=== PATIENT | female | born 1955 | race Hispanic/Latino ===

== ENCOUNTER 2018-06-28 16:08 | Observation (INO) | payer BC, MEDICARE ==
[2018-06-28 16:08] VITALS: BMI 26.3
--- NOTE | 2018-06-28 17:20 | ED PDOC ---
HPI: Hypertension/Hypotension Time Seen by Provider: 06/28/18 17:03 Chief Complaint (Nursing): High Blood Pressure Chief Complaint (Provider): Palpitations History Per: Patient History/Exam Limitations: no limitations Additional Complaint(s): Pt reports palpitations that lasted for hours last night, associated with chest pressure. Was evaluated by Dr. Loo in office today where BP 160/100, told to come to ED for evaluation. Pt denies CP, SOB, recent travel, leg swelling, calf pain. Past Medical History Reviewed: Nursing Documentation, Vital Signs Vital Signs: Last Vital Signs Temp 98.3 F 06/28/18 16:49 Pulse 100 H 06/28/18 16:49 Resp 18 06/28/18 16:49 BP 168/96 H 06/28/18 16:49 Pulse Ox 99 06/28/18 16:49 - Medical History PMH: Anxiety, Depression - Family History Family History: States: Unknown Family Hx - Social History Current smoker - smoking cessation education provided: No Alcohol: None - Home Medications Home Medications: Ambulatory Orders Medication Instructions Recorded Cyclobenzaprine HCl [Flexeril] 10 mg PO TID PRN #15 tab 12/11/14 Venlafaxine Hydrochloride [Effexor] 50 mg PO DAILY 12/11/14 Diclofenac Sodium [Voltaren] 50 mg PO Q8H PRN #60 ect 07/17/15 traMADol [Ultram] 50 mg PO TID PRN #16 tab 07/17/15 traMADol [Ultram] 50 mg PO TID PRN #30 tab 07/17/15 Cyclobenzaprine [Cyclobenzaprine 10 mg PO Q8H PRN #12 tab 04/29/16 HCl] - Allergies Allergies/Adverse Reactions: Allergies Allergy/AdvReac Type Severity Reaction Status Date / Time Penicillins Allergy URTICARIA Verified 04/29/16 04:25 Review of Systems Constitutional: Negative for: Fever, Chills Cardiovascular: Positive for: Palpitations. Negative for: Chest Pain, Orthopnea Respiratory: Negative for: Cough, Shortness of Breath Gastrointestinal: Negative for: Abdominal Pain Skin: Negative for: Rash Neurological: Negative for: Headache, Dizziness Psych: Positive for: Anxiety Physical Exam - Reviewed Nursing Documentation Reviewed: Yes - Physical Exam Appears: Positive for: Well, No Acute Distress Skin: Positive for: Normal Color, Warm, Dry Eye Exam: Positive for: Normal appearance, EOMI, PERRL Cardiovascular/Chest: Positive for: Regular Rate, Rhythm Respiratory: Positive for: Normal Breath Sounds Gastrointestinal/Abdominal: Positive for: Normal Exam Back: Positive for: Normal Inspection Extremity: Positive for: Normal ROM. Negative for: Calf Tenderness, Swelling Neurologic/Psych: Positive for: Alert, conveyor feeder II-XII, Oriented - Laboratory Results Result Diagrams: 06/28/18 17:30 06/28/18 17:30 - ECG Interpretation Of ECG: NSR @ 95, no ST-T changes. O2 Sat by Pulse Oximetry: 99 Pulse Ox Interpretation: Normal Medical Decision Making Medical Decision Makin yo female with palpitations and elevated BP. - labs - EKG - CXR Accession No. : [id number] Patient Name / ID : HUNTER Argueta / [id number] Exam Date : 06/28/2018 17:45:39 ( Approved ) Study Comment : Sex / Age : F / 63Y Creator : Madhu Lujan MD Dictator : Madhu Lujan MD Rapid Transit Operator : Welding Foreman : Madhu Lujan MD Approver2 : Report Date : 06/28/2018 18:04:05 My Comment : Date of service: 06/28/2018 HISTORY: Palpitations COMPARISON: No prior. TECHNIQUE: Chest PA and lateral FINDINGS: LUNGS: Hyperinflation, manifestations of COPD. No active pulmonary disease. PLEURA: No significant pleural effusion identified. No pneumothorax apparent. CARDIOVASCULAR: No radiographic findings to suggest acute or significant cardiovascular disease. Atherosclerotic calcifications identified primarily aortic arch. No pulmonary vascular congestion. OSSEOUS STRUCTURES: No significant abnormalities. VISUALIZED UPPER ABDOMEN: Normal. OTHER FINDINGS: None. IMPRESSION: No active disease. 18:[address] Loo, states HR in office was in 120s, recommends C oreg 3.125 mg and Xanax 0.25 mg PO. ] 21:00 Repeat BP 144/87, Coreg held. Disposition - Clinical Impression Clinical Impression: Chest pain, Palpitations - Patient ED Disposition Is Patient to be Admitted: Yes - Disposition Disposition Time: 21:05 Condition: STABLE Forms: [facility] (Greek) - Pt Status Changed To: Hospital Disposition Of: Observation - POA Present On Arrival: None
[2018-06-28 17:42] LABS: BASO # 0.1 K/uL (0.0-0.2); BASO % 1.2 % (0.0-2.0); EOS % 0.7 % (0.0-4.0); LYMPH # 1.4 K/uL (1.0-4.3); LYMPH % 26.6 % (20.0-40.0); MEAN CELL VOLUME 90.6 fl (81.0-99.0); MEAN CORPUSCULAR HEMOGLOBIN 30.1 pg (27.0-31.0); MEAN CORPUSCULAR HGB CONC 33.2 g/dL (33.0-37.0); MEAN PLATELET VOLUME 8.7 fl (7.2-11.7); MONO # 0.5 K/uL (0.0-0.8); MONO % 9.8 % (0.0-10.0); NEUT # 3.2 K/uL (1.8-7.0); NEUT % 61.7 % (50.0-75.0); RBC 4.32 Mil/uL (3.80-5.20); RED CELL DISTRIBUTION WIDTH 13.1 % (11.5-14.5); WHITE BLOOD COUNT 5.1 K/uL (4.8-10.8)
[2018-06-28 17:55] LABS: ALB/GLOB RATIO 1.3 (1.0-2.1); ALBUMIN 4.4 g/dL (3.5-5.0); ALT/SGPT 25 U/L (9-52); AST/SGOT 25 U/L (14-36); BLOOD UREA NITROGEN 20 mg/dl (7-17); CALCIUM 9.6 mg/dL (8.4-10.2); GFR NON-AFRICAN AMERICAN > 60
[2018-06-28 18:05] LABS: INR 0.9; PROTHROMBIN TIME 10.6 Seconds (9.8-13.1)
--- NOTE | 2018-06-28 18:07 | RAD ---
Date of service: 06/28/2018 HISTORY: Palpitations COMPARISON: No prior. TECHNIQUE: Chest PA and lateral FINDINGS: LUNGS: Hyperinflation, manifestations of COPD. No active pulmonary disease. PLEURA: No significant pleural effusion identified. No pneumothorax apparent. CARDIOVASCULAR: No radiographic findings to suggest acute or significant cardiovascular disease. Atherosclerotic calcifications identified primarily aortic arch. No pulmonary vascular congestion. OSSEOUS STRUCTURES: No significant abnormalities. VISUALIZED UPPER ABDOMEN: Normal. OTHER FINDINGS: None. IMPRESSION: No active disease.
[2018-06-28 18:08] LABS: PARTIAL THROMBOPLASTIN TIME 30.1 Seconds (25.6-37.1)
[2018-06-28] MEDS ORDERED: Iodixanol 320 MG/ML 100 ML BOTTLE IV ONE (19:27)
[2018-06-28] MEDS ORDERED: Sodium Chloride 0.9% 50 ML IV ONE (19:27)
[2018-06-29] MEDS ORDERED: Enoxaparin 40 mg Syringe SC SCH (09:00)
--- NOTE | 2018-06-29 12:37 | CT ---
Date of service: 06/28/2018 PROCEDURE: CT Chest with contrast (Pulmonary Angiogram) HISTORY: Palpitations COMPARISON: Chest radiographs 06/28/2018 as well. TECHNIQUE: Axial computed tomography images were obtained of the chest in the pulmonary arterial phase of enhancement. Coronal and sagittal reformatted images were created and reviewed. Intravenous contrast dose: Visipaque 320, 80 cc Radiation dose: Total exam DLP = 609.96 mGy-cm. This CT exam was performed using one or more of the following dose reduction techniques: Automated exposure control, adjustment of the mA and/or kV according to patient size, and/or use of iterative reconstruction technique. FINDINGS: PULMONARY ARTERIES: Unremarkable. No pulmonary embolism. AORTA: No acute findings. No thoracic aortic aneurysm. Calcific atherosclerotic changes are seen related to the thoracic aorta. LUNGS: Unremarkable. No nodule, mass or pulmonary consolidation. PLEURAL SPACES: Unremarkable. No effusion or pneumothorax. HEART: Unremarkable. No cardiomegaly. Normal right:left ventricle volume ratio. No significant pericardial effusion. LYMPH NODES: No lymphadenopathy. BONES, CHEST WALL: Mildly kyphotic thoracic spinal deformity likely on the basis of multiple midthoracic insufficiency fractures of limited severity but indeterminate age. OTHER FINDINGS: Unremarkable. IMPRESSION: Unremarkable CT pulmonary angiogram. No pulmonary embolus. No infiltrate, pleural or pericardial effusion appreciable. Kyphotic thoracic spinal deformity likely on an insufficiency fracture basis at the mid thoracic spine, potentially chronic but ultimately of indeterminate age. Concordant preliminary report from [facility], 06/28/2018 8:36 p.m..
--- NOTE | 2018-06-29 13:18 | CP.PCM.HP ---
History of Present Illness - History of Present Illness History of Present Illness: Pt 63 y/o lady c/o palpitations for hours the day of admission, associated with chest pressure. Was evaluated in office today where BP 160/100 and the HR was 120. She was very anxious and in mild distress, told to come to ED for eval uation. Present on Admission - Present on Admission Any Indicators Present on Admission: No Review of Systems - Constitutional Constitutional: As Per HPI - EENT Eyes: As Per HPI - Cardiovascular Cardiovascular: As Per HPI - Respiratory Respiratory: As Per HPI - Gastrointestinal Gastrointestinal: As Per HPI - Musculoskeletal Musculoskeletal: As Per HPI - Integumentary Integumentary: As Per HPI - Neurological Neurological: As Per HPI - Psychiatric Psychiatric: As Per HPI Past Patient History - Infectious Disease Hx of Infectious Diseases: None - Past Social History Smoking Status: Never Smoked - CARDIAC Hx Hypertension: Yes - PULMONARY Hx Respiratory Disorders: No - NEUROLOGICAL Hx Neurological Disorder: No - HEENT Hx HEENT Problems: No - RENAL Hx Chronic Kidney Disease: No - ENDOCRINE/METABOLIC Hx Endocrine Disorders: No - HEMATOLOGICAL/ONCOLOGICAL Hx Blood Disorders: No Hx Human Immunodeficiency Virus (HIV): No - INTEGUMENTARY Hx Dermatological Problems: No - MUSCULOSKELETAL/RHEUMATOLOGICAL Hx Musculoskeletal Disorders: No Hx Falls: No - GASTROINTESTINAL Hx Gastrointestinal Disorders: No - GENITOURINARY/GYNECOLOGICAL Hx Genitourinary Disorders: No - PSYCHIATRIC Hx Psychophysiologic Disorder: Yes Hx Anxiety: Yes Hx Depression: Yes Hx Substance Use: No - SURGICAL HISTORY Hx Surgeries: Yes (oral surgery) - ANESTHESIA Hx Anesthesia: Yes Hx Anesthesia Reactions: No Hx Malignant Hyperthermia: No Has any member of the family had a problem w/ anesthesia?: No Meds Allergies/Adverse Reactions: Allergies Allergy/AdvReac Type Severity Reaction Status Date / Time Penicillins Allergy URTICARIA Verified 04/29/16 04:25 Physical Exam - Constitutional Additional comments: anxious - Head Exam Head Exam: ATRAUMATIC, NORMAL INSPECTION, NORMOCEPHALIC - Eye Exam Eye Exam: Normal appearance - ENT Exam ENT Exam: Mucous Membranes Moist - Neck Exam Neck exam: Positive for: Full Rom, Normal Inspection - Respiratory Exam Respiratory Exam: Clear to Auscultation Bilateral - Cardiovascular Exam Cardiovascular Exam: Tachycardia, REGULAR RHYTHM, +S1, +S2 - GI/Abdominal Exam GI & Abdominal Exam: Normal Bowel Sounds - Back Exam Back exam: NORMAL INSPECTION - Neurological Exam Neurological exam: Alert, CN II-XII Intact, Normal Gait, Oriented x3, Reflexes Normal - Psychiatric Exam Psychiatric exam: Anxious - Skin Skin Exam: Normal Color Results - Vital Signs Recent Vital Signs: Last Vital Signs Temp 98.4 F 06/29/18 12:00 Pulse 102 H 06/29/18 12:00 Resp 18 06/29/18 12:00 BP 145/87 06/29/18 12:00 Pulse Ox 97 06/29/18 12:00 - Labs Result Diagrams: 06/28/18 17:30 06/28/18 17:30 Labs: Laboratory Results - last 24 hr 06/28/18 06/28/18 06/28/18 17:30 17:30 17:30 WBC 5.1 RBC 4.32 Hgb 13.0 Hct 39.1 MCV 90.6 MCH 30.1 MCHC 33.2 RDW 13.1 Plt Count 252 MPV 8.7 Neut % (Auto) 61.7 Lymph % (Auto) 26.6 [place] % (Auto) 9.8 Eos % (Auto) 0.7 Baso % (Auto) 1.2 Neut # (Auto) 3.2 Lymph # (Auto) 1.4 [place] # (Auto) 0.5 Eos # (Auto) 0.0 Baso # (Auto) 0.1 PT 10.6 INR 0.9 APTT 30.1 D-Dimer, Quantitative 293 H Sodium 134 Potassium 4.1 Chloride 101 Carbon Dioxide 26 Anion Gap 11 BUN 20 H Creatinine 0.7 Est GFR ( Amer) > 60 Est GFR (Non-Af Amer) > 60 Random Glucose 100 Calcium 9.6 Total Bilirubin 0.5 AST 25 ALT 25 Alkaline Phosphatase 68 Troponin I < 0.0120 Total Protein 7.7 Albumin 4.4 Globulin 3.3 Albumin/Globulin Ratio 1.3 TSH 3rd Generation 5.42 H 06/29/18 06/29/18 01:30 12:30 WBC RBC Hgb Hct MCV MCH MCHC RDW Plt Count MPV Neut % (Auto) Lymph % (Auto) [place] % (Auto) Eos % (Auto) Baso % (Auto) Neut # (Auto) Lymph # (Auto) [place] # (Auto) Eos # (Auto) Baso # (Auto) PT INR APTT D-Dimer, Quantitative Sodium Potassium Chloride Carbon Dioxide Anion Gap BUN Creatinine Est GFR ( Amer) Est GFR (Non-Af Amer) Random Glucose Calcium Total Bilirubin AST ALT Alkaline Phosphatase Troponin I < 0.0120 < 0.0120 Total Protein Albumin Globulin Albumin/Globulin Ratio TSH 3rd Generation Assessment & Plan (1) Depression Status: Chronic (2) Chest pain Status: Acute (3) Palpitations Status: Acute (4) Anxiety Status: Acute (5) Hypertensive cardiovascular disease Status: Acute - Assessment and Plan (Free Text) Plan: As per orders
--- NOTE | 2018-06-29 16:45 | CP.PCM.CON ---
History of Present Illness - History of Present Illness History of Present Illness: 63-year-old female patient of Dr. Loo who was having symptoms of palpitations and chest discomfort day prior to presentation she was seen by Dr. Reese in the office at which time she was noted to be to be tachycardic with heart rate of 120s and her blood pressure was 6100 she was somewhat in distress and therefore was sent to the emergency room for further evaluation and treatment according to the patient she is relatively active recently started feeling some palpitations day prior to presentation had some chest discomfort. EKG done showed normal sinus rhythm with nonspecific ST changes. Echocardiogram was ordered and an earlier in the day. Review of Systems - Review of Systems Systems not reviewed;Unavailable: Acuity of Condition - Constitutional Constitutional: As Per HPI - EENT Eyes: As Per HPI Ears: As Per HPI Nose/Mouth/Throat: As Per HPI - Breasts Breasts: As Per HPI - Cardiovascular Cardiovascular: As Per HPI - Respiratory Respiratory: As Per HPI - Gastrointestinal Gastrointestinal: As Per HPI - Genitourinary Genitourinary: As Per HPI - Reproductive: Female Reproductive:Female: As Per HPI - Menstruation Menstruation: As Per HPI - Musculoskeletal Musculoskeletal: As Per HPI - Integumentary Integumentary: As Per HPI - Neurological Neurological: As Per HPI - Psychiatric Psychiatric: As Per HPI - Endocrine Endocrine: As Per HPI - Hematologic/Lymphatic Hematologic: As Per HPI Past Patient History - Infectious Disease Hx of Infectious Diseases: None - Past Social History Smoking Status: Never Smoked - CARDIAC Hx Hypertension: Yes - PULMONARY Hx Respiratory Disorders: No - NEUROLOGICAL Hx Neurological Disorder: No - HEENT Hx HEENT Problems: No - RENAL Hx Chronic Kidney Disease: No - ENDOCRINE/METABOLIC Hx Endocrine Disorders: No - HEMATOLOGICAL/ONCOLOGICAL Hx Blood Disorders: No Hx Human Immunodeficiency Virus (HIV): No - INTEGUMENTARY Hx Dermatological Problems: No - MUSCULOSKELETAL/RHEUMATOLOGICAL Hx Musculoskeletal Disorders: No Hx Falls: No - GASTROINTESTINAL Hx Gastrointestinal Disorders: No - GENITOURINARY/GYNECOLOGICAL Hx Genitourinary Disorders: No - PSYCHIATRIC Hx Psychophysiologic Disorder: Yes Hx Anxiety: Yes Hx Depression: Yes Hx Substance Use: No - SURGICAL HISTORY Hx Surgeries: Yes (oral surgery) - ANESTHESIA Hx Anesthesia: Yes Hx Anesthesia Reactions: No Hx Malignant Hyperthermia: No Has any member of the family had a problem w/ anesthesia?: No Meds Allergies/Adverse Reactions: Allergies Allergy/AdvReac Type Severity Reaction Status Date / Time Penicillins Allergy URTICARIA Verified 04/29/16 04:25 - Medications Medications: Current Medications Carvedilol (Coreg) 3.125 mg PO Q12 COUNT INCLUDES THE [facility] Last Admin: 06/29/18 08:59 Dose: 3.125 mg Clonazepam (Klonopin) 0.5 mg PO BID COUNT INCLUDES THE [facility] Last Admin: 06/29/18 16:17 Dose: 0.5 mg Enoxaparin Sodium (Lovenox) 40 mg SC DAILY COUNT INCLUDES THE [facility]; Protocol Last Admin: 06/29/18 08:59 Dose: 40 mg Venlafaxine HCl (Effexor) 75 mg PO DAILY COUNT INCLUDES THE [facility] Last Admin: 06/29/18 08:59 Dose: 75 mg Physical Exam - Constitutional Appears: Well - Head Exam Head Exam: ATRAUMATIC, NORMAL INSPECTION, NORMOCEPHALIC - Eye Exam Eye Exam: EOMI, Normal appearance, PERRL Pupil Exam: NORMAL ACCOMODATION, PERRL - ENT Exam ENT Exam: Mucous Membranes Moist, Normal Exam - Neck Exam Neck exam: Positive for: Normal Inspection - Respiratory Exam Respiratory Exam: Clear to Auscultation Bilateral, NORMAL BREATHING PATTERN - Cardiovascular Exam Cardiovascular Exam: REGULAR RHYTHM, RRR, Systolic Murmur - GI/Abdominal Exam GI & Abdominal Exam: Normal Bowel Sounds, Soft. absent: Tenderness - Extremities Exam Extremities exam: Positive for: normal inspection - Back Exam Back exam: NORMAL INSPECTION - Neurological Exam Neurological exam: Alert, CN II-XII Intact, Normal Gait, Oriented x3, Reflexes Normal - Psychiatric Exam Psychiatric exam: Normal Affect, Normal Mood - Skin Skin Exam: Dry, Intact, Normal Color, Warm Results - Vital Signs Recent Vital Signs: Last Vital Signs Temp 98.4 F 06/29/18 15:55 Pulse 93 H 06/29/18 15:55 Resp 16 06/29/18 15:55 BP 161/91 H 06/29/18 15:55 Pulse Ox 99 06/29/18 15:55 - Labs Result Diagrams: 06/28/18 17:30 06/28/18 17:30 Labs: Laboratory Results - last 24 hr 06/28/18 06/28/18 06/28/18 17:30 17:30 17:30 WBC 5.1 RBC 4.32 Hgb 13.0 Hct 39.1 MCV 90.6 MCH 30.1 MCHC 33.2 RDW 13.1 Plt Count 252 MPV 8.7 Neut % (Auto) 61.7 Lymph % (Auto) 26.6 [place] % (Auto) 9.8 Eos % (Auto) 0.7 Baso % (Auto) 1.2 Neut # (Auto) 3.2 Lymph # (Auto) 1.4 [place] # (Auto) 0.5 Eos # (Auto) 0.0 Baso # (Auto) 0.1 PT 10.6 INR 0.9 APTT 30.1 D-Dimer, Quantitative 293 H Sodium 134 Potassium 4.1 Chloride 101 Carbon Dioxide 26 Anion Gap 11 BUN 20 H Creatinine 0.7 Est GFR ( Amer) > 60 Est GFR (Non-Af Amer) > 60 Random Glucose 100 Calcium 9.6 Total Bilirubin 0.5 AST 25 ALT 25 Alkaline Phosphatase 68 Troponin I < 0.0120 Total Protein 7.7 Albumin 4.4 Globulin 3.3 Albumin/Globulin Ratio 1.3 TSH 3rd Generation 5.42 H 06/29/18 06/29/18 01:30 12:30 WBC RBC Hgb Hct MCV MCH MCHC RDW Plt Count MPV Neut % (Auto) Lymph % (Auto) [place] % (Auto) Eos % (Auto) Baso % (Auto) Neut # (Auto) Lymph # (Auto) [place] # (Auto) Eos # (Auto) Baso # (Auto) PT INR APTT D-Dimer, Quantitative Sodium Potassium Chloride Carbon Dioxide Anion Gap BUN Creatinine Est GFR ( Amer) Est GFR (Non-Af Amer) Random Glucose Calcium Total Bilirubin AST ALT Alkaline Phosphatase Troponin I < 0.0120 < 0.0120 Total Protein Albumin Globulin Albumin/Globulin Ratio TSH 3rd Generation Assessment & Plan (1) Chest pain Assessment and Plan: atypical acs ruled out telemetry x 24 hours echo outpt stress testing Status: Acute (2) Hypertensive cardiovascular disease Assessment and Plan: increase coreg to 6.25mg po bid monitor BP with diary log x 4 weeks for titration of meds Status: Acute (3) Palpitations Assessment and Plan: etiology ? arrhythmia bb telemetry Status: Acute (4) Anxiety Status: Acute
--- NOTE | 2018-06-29 20:55 | CARD ---
APPROVED REPORT Date of service: 06/28/2018 EKG Measurement Heart [id number] <Conclusion> Normal sinus rhythm Normal Electrocardiogram
--- NOTE | 2018-06-29 21:14 | CARD ---
APPROVED REPORT Date of service: 06/29/2018 EXAM: Two-dimensional and M-mode echocardiogram with Doppler and color Doppler. Other Information Quality : GoodRhythm : Tachycardia INDICATION Palpitations 2D DIMENSIONS IVSd1.31 (0.7-1.1cm)LVDd3.61 (3.9-5.9cm) LVOT Diameter2.20 (1.8-2.4cm)PWd0.99 (0.7-1.1cm) IVSs1.25 (0.8-1.2cm)LVDs2.80 (2.5-4.0cm) FS (%) 22.6 %PWs1.24 (0.8-1.2cm) M-Mode DIMENSIONS Left Atrium (MM)4.36 (2.5-4.0cm)IVSd1.10 (0.7-1.1cm) Aortic Root2.87 (2.2-3.7cm)LVDd4.88 (4.0-5.6cm) Aortic Cusp Exc.1.54 (1.5-2.0cm)PWd0.80 (0.7-1.1cm) IVSs1.38 cmFS (%) 45 % LVDs2.67 (2.0-3.8cm)PWs1.24 cm Aortic Valve AoV Peak Xmrftrcx531.3cm/sAoV VTI20.1cmAO Peak GR.5mmHg LVOT Peak Hrjqchvu12.6cm/sLVOT VTI14.39cmAO Mean GR.3mmHg CHRISTOPHER (VMAX)1.27hf4WUR (VTI)1.55cm2 Mitral Valve MV E Bfjmcmru62.4cm/sMV DECEL PBHQ92jbIR A Omjyrzue15.6cm/s MV QWS56xoP/A ratio0.6MVA (PHT)8.49cm2 TDI Lateral E' Peak V7.82cm/sMedial E' Peak V7.41cm/sE/Lateral E'6.1 E/Medial E'6.4 LEFT VENTRICLE The left ventricle is normal size. There is normal left ventricular wall thickness. The left ventricular systolic function is normal. The estimated ejection fraction is 60-65% No regional wall motion abnormalities noted.. Transmitral Doppler flow pattern is Grade I-abnormal relaxation pattern. No left ventricle thrombus noted on this study. There is no ventricular septal defect visualized. There is no left ventricular aneurysm. There is no mass noted in the left ventricle. RIGHT VENTRICLE The right ventricle is normal size. There is normal right ventricular wall thickness. The right ventricular systolic function is normal. ATRIA The left atrium is mildly dilated. The right atrium size is normal. The interatrial septum is intact with no evidence for an atrial septal defect. AORTIC VALVE The aortic valve is normal in structure. No aortic regurgitation is present. There is no aortic valvular stenosis. There is no aortic valvular vegetation. MITRAL VALVE The mitral valve is normal in structure. There is no evidence of mitral valve prolapse. There is no mitral valve stenosis. There is mild mitral valve regurgitation noted. TRICUSPID VALVE The tricuspid valve is normal in structure. There is trivial tricuspid valve regurgitation noted. There is no tricuspid valve prolapse or vegetation. There is no tricuspid valve stenosis. PULMONIC VALVE The pulmonary valve is normal in structure. There is no pulmonic valvular regurgitation. There is no pulmonic valvular stenosis. GREAT VESSELS The aortic root is normal in size. The ascending aorta is normal in size. The pulmonary artery is normal. The IVC is normal in size and collapses >50% with inspiration. PERICARDIAL EFFUSION There is no pericardial effusion. There is no pleural effusion. <Conclusion> The estimated ejection fraction is 60-65% Transmitral Doppler flow pattern is Grade I-abnormal relaxation pattern. The left atrium is mildly dilated. There is mild mitral valve regurgitation noted. There is trivial tricuspid valve regurgitation noted.
[2018-06-30 00:33] VITALS: RESP 18
[2018-06-30 05:06] VITALS: TEMP 98.3
[2018-06-30 08:15] VITALS: BP 155/92; PULSE 93; O2SAT 99
--- NOTE | 2018-06-30 10:58 | CP.PCM.PN ---
Subjective - Date & Time of Evaluation Date of Evaluation: 06/30/18 Time of Evaluation: 10:58 - Subjective Subjective: Patient respond well to rx. Stable no SOB no CP no Palpations DC patient home f/u in 1 week oin my office Objective - Vital Signs/Intake and Output Vital Signs (last 24 hours): Temp Pulse Resp BP Pulse Ox 98.3 F 93 H 18 155/92 H 99 06/30/18 08:14 06/30/18 08:14 06/30/18 08:14 06/30/18 08:14 06/30/18 08:14 - Medications Medications: Current Medications Carvedilol (Coreg) 6.25 mg PO Q12 [facility] Last Admin: 06/30/18 09:22 Dose: 6.25 mg Clonazepam (Klonopin) 0.5 mg PO BID [facility] Last Admin: 06/30/18 09:25 Dose: 0.5 mg Enoxaparin Sodium (Lovenox) 40 mg SC DAILY [facility]; Protocol Last Admin: 06/29/18 08:59 Dose: 40 mg Venlafaxine HCl (Effexor) 75 mg PO DAILY [facility] Last Admin: 06/30/18 09:22 Dose: 75 mg - Labs Labs: 06/28/18 17:30 06/28/18 17:30 PT 10.6 Seconds (9.8-13.1) 06/28/18 17:30 INR 0.9 06/28/18 17:30 APTT 30.1 Seconds (25.6-37.1) 06/28/18 17:30 - Constitutional Appears: Well - Head Exam Head Exam: ATRAUMATIC, NORMAL INSPECTION, NORMOCEPHALIC - Eye Exam Eye Exam: Normal appearance - ENT Exam ENT Exam: Mucous Membranes Moist - Neck Exam Neck Exam: Full ROM - Respiratory Exam Respiratory Exam: Clear to Ausculation Bilateral - Cardiovascular Exam Cardiovascular Exam: REGULAR RHYTHM, +S1, +S2 - GI/Abdominal Exam GI & Abdominal Exam: Normal Bowel Sounds - Extremities Exam Extremities Exam: Normal Inspection - Neurological Exam Neurological Exam: Alert, Awake, CN II-XII Intact, Normal Gait, Oriented x3 - Psychiatric Exam Psychiatric exam: Normal Affect Assessment and Plan (1) Depression Status: Chronic (2) Chest pain Status: Acute (3) Palpitations Status: Acute (4) Anxiety Status: Acute (5) Hypertensive cardiovascular disease Status: Acute
== END 2018-06-30 14:32 | disposition home or self-care (01) ==
LOC: H.ER 16:08 → H.ERHOLD 21:03 → H.TEL 23:04
PROVIDERS: ADMIT Internal Medicine; ATTEND Internal Medicine
DX: R07.89 Other chest pain (principal); F32.9 Major depressive disorder, single episode, unspecified; F41.9 Anxiety disorder, unspecified; R00.2 Palpitations; I11.9 Hypertensive heart disease without heart failure
CPT/HCPCS: 36415; 71046; 71275; 80053; 84443; 84484; 85025; 85378; 85610; 85730; 93005; 93306; 99285; G0378; J1650; Q9967